=== PATIENT | male | born 1990 | race Two or more races ===

== ENCOUNTER 2023-04-03 15:44 | Emergency (ER) | payer BC, OTHER ==
[~2023-04-03] VITALS: Ht 175.3 cm; Wt 69.4 kg
[2023-04-03] MEDS ORDERED: HYDR-4902 PO (17:28)
[2023-04-03] MEDS ORDERED: IBUP-1455 PO (17:28)
[2023-04-03] MEDS: HYDROcodone-ACET 10/325MG TAB PO ONE (20:18)
[2023-04-03 20:20] VITALS: BP 123/85; PULSE 96; RESP 15; TEMP 98.2; O2SAT 96
== END 2023-04-03 20:24 | disposition home or self-care (01) ==
LOC: ER 15:44
DX: S46.812A Strain of other muscles, fascia and tendons at shoulder and upper arm level, left arm, initial encounter (principal); S09.8XXA Other specified injuries of head, initial encounter; Z98.890 Other specified postprocedural states; Y04.2XXA Assault by strike against or bumped into by another person, initial encounter; Y93.89 Activity, other specified; Y92.89 Other specified places as the place of occurrence of the external cause; Y99.8 Other external cause status
CPT/HCPCS: 70140; 73030